=== PATIENT | female | born 1955 | race Caucasian/White ===

== ENCOUNTER 2018-03-31 15:00 | Outpatient (CLI) | payer MEDICARE, MEDICAID | END 2018-03-31 23:59 | disposition home or self-care (01) | LOC: RAD 15:00 | PROVIDERS: ATTEND Family Medicine | DX: R13.12 Dysphagia, oropharyngeal phase (principal); K21.9 Gastro-esophageal reflux disease without esophagitis | CPT/HCPCS: 74230 ==

== ENCOUNTER 2018-04-29 18:37 | Inpatient (IN) | payer MEDICARE, MEDICAID ==
[~2018-04-29] VITALS: Ht 158.8 cm; Wt 70.0 kg
[2018-04-29] MEDS ORDERED: methylPREDNISolone sod succ 125mg/2ml vial IV ONE (18:55)
[2018-04-29] MEDS ORDERED: normal saline 1000ML IV soln IVB ONE (18:55)
[2018-04-29] MEDS ORDERED: ipratropium/albuterol 3ml nebule NEB ONE (18:55)
[2018-04-29] MEDS ORDERED: albuterol 2.5 MG/3 ML nebule NEB ONE (18:55)
--- NOTE | 2018-04-29 19:07 | NUR ---
[employer] ADMINISTRATOR AT BEDSIDE
--- NOTE | 2018-04-29 19:19 | NUR ---
REPORT TO MARGARITA NORMAN
[2018-04-29 19:29] LABS: BASOPHILS # (AUTO) 0.1 X10'3 (0-0.2); BASOPHILS % (AUTO) 0.7 % (0-1); EOSINOPHILS # (AUTO) 0.4 X10'3 (0-0.9); EOSINOPHILS % (AUTO) 5.5 % (0-6); HEMATOCRIT 39.4 % (35.0-45.0); HEMOGLOBIN 12.2 g/dl (12.0-16.0); LYMPHOCYTES # (AUTO) 1.8 X10'3 (1.1-4.8); LYMPHOCYTES % (AUTO) 22.1 % (21-51); MEAN CORPUSCULAR HEMOGLOBIN 23.3 PG (27.0-31.0); MEAN CORPUSCULAR VOLUME 75.2 FL (78-98); MONOCYTES # (AUTO) 0.5 X10'3 (0-0.9); MONOCYTES % (AUTO) 6.7 % (2-12); NEUTROPHILS # (AUTO) 5.3 X10'3 (1.8-7.7); PLATELET COUNT 114 X10'3 (140-440); RED BLOOD COUNT 5.24 X10'6 (4.20-5.60); RED CELL DISTRIBUTION WIDTH 17.3 % (11.5-14.5); WHITE BLOOD COUNT 8.1 X10'3 (4.5-11.0)
[2018-04-29 19:42] LABS: PARTIAL THROMBOPLASTIN TIME 26 SECONDS (22-32); PROTHROMBIN TIME 10.1 SECONDS (9.0-12.0)
--- NOTE | 2018-04-29 19:44 | NUR ---
SPOKE TO MARIANNE FROM [facility]
[2018-04-29 19:48] LABS: ALANINE AMINOTRANSFERASE 18 U/L (12-78); ALBUMIN 3.5 G/DL (3.4-5.0); ALKALINE PHOSPHATASE 114 IU/L (46-116); ANION GAP 6 (8-16); ASPARTATE AMINO TRANSFERASE 25 U/L (10-37); BILIRUBIN,TOTAL 0.2 MG/DL (0.1-1.0); BLOOD UREA NITROGEN 18 MG/DL (7-18); BUN/CREATININE RATIO 18.6 (6.6-38.0); CHLORIDE 107 MMOL/L (99-107); CREATININE 0.97 MG/DL (0.40-0.90); GLUCOSE 119 MG/DL (70-104); POTASSIUM 3.6 MMOL/L (3.5-5.1); SODIUM 143 MMOL/L (135-145); TOTAL CARBON DIOXIDE 29.8 MMOL/L (24-32); TOTAL PROTEIN 7.1 G/DL (6.4-8.2); eGFR 59 ML/MIN
[2018-04-29] MEDS ORDERED: magnesium hydroxide 30ml (MOM) UD suspension PO PRN (21:00)
[2018-04-29] MEDS ORDERED: magnesium 2GM in 50ml NS 50 ML IV PRN (21:00)
[2018-04-29] MEDS ORDERED: acetaminophen 325mg tablet PO PRN ×2 (21:00)
[2018-04-29] MEDS ORDERED: potassium Cl 40MEQ/NS 500ml 500 ML IV PRN ×2 (21:00)
[2018-04-29] MEDS ORDERED: mag hydrox/Alum hydrox/simeth 30ml oral suspension PO PRN (21:00)
[2018-04-29] MEDS ORDERED: magnesium Cl slow-release 64mg tablet PO PRN (21:00)
[2018-04-29] MEDS ORDERED: magnesium 4gm in 100ml NS 100 ML IV PRN (21:00)
[2018-04-29] MEDS ORDERED: ipratropium/albuterol 3ml nebule NEB PRN (21:00)
[2018-04-29] MEDS ORDERED: ondansetron/PF 4mg/2ml inj IV PRN (21:00)
[2018-04-29] MEDS ORDERED: potassium Cl 20 mEq SR tablet PO PRN ×2 (21:00)
[2018-04-29] MEDS ORDERED: azithromycin/NS 500mg/250ml 250 ML IV SCH (22:00)
--- NOTE | 2018-04-29 23:55 | NUR ---
PAGING RTX FOR NEBS
[2018-04-30] MEDS: ipratropium/albuterol 3ml nebule NEB SCH ×3 (00:02→07:15)
--- NOTE | 2018-04-30 04:27 | NUR ---
PT RESTING COMFORTABLY IN BED, APPEARS IN NO ACUTE DISTRESS.
--- NOTE | 2018-04-30 06:37 | NUR ---
PATIENT PLACED ON 2L O2 NC SATING 88 % RA.
[2018-04-30] MEDS: enoxaparin 40mg/0.4ml syringe SQ SCH (07:05)
[2018-04-30] MEDS: methylPREDNISolone sod succ/PF 40mg inj. IV SCH ×2 (07:06→20:52)
[2018-04-30] MEDS: K and/or MAG REPLACEMENT MC SCH (08:02)
--- NOTE | 2018-04-30 08:11 | NUR ---
PATIENT NOTED WITH URINARY INCONTINENCE,BEDDINGS AND GOWN CHANGED,PATIENT REPOSITIONED TOLERATED.CALL LIGHT WITHIN REACH.JAYLEEN NURSE AT BEDSIDE.
[2018-04-30 08:32] LABS: BASOPHILS # (AUTO) 0.1 X10'3 (0-0.2); BASOPHILS % (AUTO) 0.5 % (0-1); EOSINOPHILS % (AUTO) 0.1 % (0-6); HEMATOCRIT 38.4 % (35.0-45.0); LYMPHOCYTES # (AUTO) 1.2 X10'3 (1.1-4.8); LYMPHOCYTES % (AUTO) 12.1 % (21-51); MEAN CORPUSCULAR HEMOGLOBIN 23.4 PG (27.0-31.0); MEAN CORPUSCULAR HGB CONC 31.3 g/dL (33.0-36.5); MEAN CORPUSCULAR VOLUME 74.7 FL (78-98); MEAN PLATELET VOLUME 9.9 FL (7.4-10.4); MONOCYTES # (AUTO) 0.4 X10'3 (0-0.9); MONOCYTES % (AUTO) 3.9 % (2-12); NEUTROPHILS # (AUTO) 8.2 X10'3 (1.8-7.7); NEUTROPHILS % (AUTO) 83.4 % (42-75); PLATELET COUNT 121 X10'3 (140-440); RED BLOOD COUNT 5.14 X10'6 (4.20-5.60); RED CELL DISTRIBUTION WIDTH 17.1 % (11.5-14.5); WHITE BLOOD COUNT 9.9 X10'3 (4.5-11.0)
[2018-04-30] MEDS ORDERED: QUET25TA PO (08:37)
[2018-04-30] MEDS ORDERED: CLON1TAB12 PO (08:37)
[2018-04-30] MEDS ORDERED: OMEP20CA10 PO (08:37)
[2018-04-30] MEDS ORDERED: PYRI50TA10 PO (08:37)
[2018-04-30] MEDS ORDERED: SERT100T10 PO (08:37)
[2018-04-30] MEDS ORDERED: MEMA14CA PO (08:37)
[2018-04-30] MEDS ORDERED: CLON-527 PO (08:37)
[2018-04-30] MEDS ORDERED: ALBU18HF2 INH (08:37)
[2018-04-30] MEDS ORDERED: OXYB5TAB11 PO ×2 (08:37)
[2018-04-30] MEDS ORDERED: LEVO75TA7 PO (08:37)
[2018-04-30] MEDS ORDERED: DONE10TA7 PO (08:37)
[2018-04-30] MEDS ORDERED: ALBU8.5H8 INH (08:37)
[2018-04-30 09:01] LABS: ALBUMIN 3.4 G/DL (3.4-5.0); ANION GAP 10 (8-16); BLOOD UREA NITROGEN 18 MG/DL (7-18); BUN/CREATININE RATIO 18.6 (6.6-38.0); CHLORIDE 106 MMOL/L (99-107); CREATININE 0.97 MG/DL (0.40-0.90); GLUCOSE 114 MG/DL (70-104); POTASSIUM 3.6 MMOL/L (3.5-5.1); SODIUM 144 MMOL/L (135-145); TOTAL CARBON DIOXIDE 27.9 MMOL/L (24-32); eGFR 59 ML/MIN
[2018-04-30] MEDS: DOXYCYCLINE 100MG CAPSULE PO SCH ×2 (09:25→20:52)
--- NOTE | 2018-04-30 11:13 | NUR ---
DR. DE LA ROSA AWARE THAT PATIENT IS TACHY 118.PATIENT DENIES CHEST DISCOMFORT.
--- NOTE | 2018-04-30 11:13 | NUR ---
PAGED HOSPITALIST.BP 183/95 HR 112,DENIES CHEST DISCOMFORT.
[2018-04-30] MEDS ORDERED: LORazepam 2 mg/ml vial IV ONE ×2 (11:35→15:25)
[2018-04-30] MEDS ORDERED: metoprolol tartrate 1mg/ml inj IV ONE (11:35)
[2018-04-30] MEDS: levalbuterol 0.63mg/3ml nebule IH SCH ×3 (12:06→23:29)
[2018-04-30] MEDS: ipratropium 0.5 MG/2.5ML nebule IH SCH ×4 (12:06→23:29)
--- NOTE | 2018-04-30 14:30 | NUR ---
patient assisted to bsc,bm x1.beddings and hospital gown changed.
--- NOTE | 2018-04-30 15:14 | NUR ---
patient pulled piv.
--- NOTE | 2018-04-30 16:04 | NUR ---
patient asleep,call light within reach.
--- NOTE | 2018-04-30 19:45 | NUR ---
Per RT, xopenex tx to be administered when meds obtained.
[2018-04-30] MEDS: lactobacillus rhamnosus 10,000 MMU CELLS/CAPSULE PO SCH (20:52)
--- NOTE | 2018-05-01 02:28 | NUR ---
EVS required as fecal matter noted on floor near pt gurney.
[2018-05-01] MEDS: levalbuterol 0.63mg/3ml nebule IH SCH ×6 (02:58→23:55)
[2018-05-01] MEDS: ipratropium 0.5 MG/2.5ML nebule IH SCH ×6 (02:58→23:54)
[2018-05-01 07:59] LABS: BASOPHILS # (AUTO) 0.1 X10'3 (0-0.2); BASOPHILS % (AUTO) 0.5 % (0-1); EOSINOPHILS % (AUTO) 0 % (0-6); HEMATOCRIT 40.9 % (35.0-45.0); HEMOGLOBIN 12.7 g/dl (12.0-16.0); LYMPHOCYTES # (AUTO) 2.4 X10'3 (1.1-4.8); LYMPHOCYTES % (AUTO) 15.4 % (21-51); MEAN CORPUSCULAR HEMOGLOBIN 23.1 PG (27.0-31.0); MEAN CORPUSCULAR VOLUME 74.5 FL (78-98); MEAN PLATELET VOLUME 10.3 FL (7.4-10.4); MONOCYTES # (AUTO) 0.7 X10'3 (0-0.9); MONOCYTES % (AUTO) 4.3 % (2-12); NEUTROPHILS # (AUTO) 12.5 X10'3 (1.8-7.7); NEUTROPHILS % (AUTO) 79.8 % (42-75); PLATELET COUNT 156 X10'3 (140-440); RED BLOOD COUNT 5.49 X10'6 (4.20-5.60); RED CELL DISTRIBUTION WIDTH 17.2 % (11.5-14.5); WHITE BLOOD COUNT 15.7 X10'3 (4.5-11.0)
[2018-05-01] MEDS: enoxaparin 40mg/0.4ml syringe SQ SCH (08:15)
[2018-05-01] MEDS: methylPREDNISolone sod succ/PF 40mg inj. IV SCH ×2 (08:15→20:59)
[2018-05-01] MEDS: DOXYCYCLINE 100MG CAPSULE PO SCH ×2 (08:15→20:58)
[2018-05-01] MEDS: lactobacillus rhamnosus 10,000 MMU CELLS/CAPSULE PO SCH ×2 (08:15→20:58)
[2018-05-01 08:29] LABS: ANISOCYTOSIS 1+; HYPOCHROMASIA 1+; MICROCYTOSIS 1+; PLATELET ESTIMATE NORMAL; TOTAL CELLS COUNTED 100; TOXIC GRANULATION 1+
[2018-05-01 08:37] LABS: ALBUMIN 3.4 G/DL (3.4-5.0); ANION GAP 10 (8-16); BLOOD UREA NITROGEN 30 MG/DL (7-18); BUN/CREATININE RATIO 30.6 (6.6-38.0); CALCIUM 9.4 MG/DL (8.5-10.1); CHLORIDE 105 MMOL/L (99-107); CREATININE 0.98 MG/DL (0.40-0.90); GLUCOSE 105 MG/DL (70-104); MAGNESIUM 2.1 MG/DL (1.5-2.4); SODIUM 141 MMOL/L (135-145); TOTAL CARBON DIOXIDE 26.4 MMOL/L (24-32); eGFR 58 ML/MIN
[2018-05-01] MEDS: K and/or MAG REPLACEMENT MC SCH (09:16)
--- NOTE | 2018-05-01 14:20 | NUR ---
DR DE LA ROSA CALLED, REQUESTED AN REPEAT MANUAL BP. BP REPEATED ON LT ARM, SITTING, 180/98
[2018-05-01] MEDS ORDERED: hydrALAZINE 20mg/ml inj. IV PRN (14:25)
--- NOTE | 2018-05-01 17:28 | NUR ---
Eric welch in [facility] - 05/01/18 at 1728 by RPRATHER pt was given I
--- NOTE | 2018-05-01 17:29 | NUR ---
pt was given IS and instructed on use, took 10 breaths to 1500 ml
--- NOTE | 2018-05-01 17:37 | NUR ---
given hydralazine dose for bp of 166/90
--- NOTE | 2018-05-01 18:18 | NUR ---
call to surgical unit, no nurse available to take report at this time
[2018-05-01 19:30] VITALS: BP 167/65
[2018-05-01] MEDS: propranolol 10mg tablet PO SCH (20:58)
[2018-05-01] MEDS: oxybutynin 5mg tablet PO SCH (20:58)
[2018-05-01] MEDS ORDERED: donepezil 5mg tablet PO SCH (21:00)
[2018-05-01] MEDS ORDERED: clonazePAM 1mg tablet PO SCH (21:00)
[2018-05-01] MEDS ORDERED: oxybutynin 5mg tablet PO SCH (21:00)
[2018-05-01] MEDS ORDERED: QUEtiapine 25mg tablet PO SCH (21:00)
[2018-05-02 00:25] VITALS: BP 126/58
[2018-05-02] MEDS: levalbuterol 0.63mg/3ml nebule IH SCH ×3 (03:09→12:56)
[2018-05-02] MEDS: ipratropium 0.5 MG/2.5ML nebule IH SCH ×3 (03:09→12:56)
[2018-05-02 06:17] LABS: BASOPHILS % (AUTO) 0.4 % (0-1); EOSINOPHILS % (AUTO) 0.1 % (0-6); HEMATOCRIT 40.9 % (35.0-45.0); HEMOGLOBIN 12.7 g/dl (12.0-16.0); LYMPHOCYTES # (AUTO) 1.9 X10'3 (1.1-4.8); LYMPHOCYTES % (AUTO) 16.8 % (21-51); MEAN CORPUSCULAR HEMOGLOBIN 23.2 PG (27.0-31.0); MEAN CORPUSCULAR HGB CONC 31.1 g/dL (33.0-36.5); MEAN CORPUSCULAR VOLUME 74.5 FL (78-98); MEAN PLATELET VOLUME 10.6 FL (7.4-10.4); MONOCYTES # (AUTO) 0.4 X10'3 (0-0.9); MONOCYTES % (AUTO) 3.6 % (2-12); NEUTROPHILS # (AUTO) 8.9 X10'3 (1.8-7.7); NEUTROPHILS % (AUTO) 79.1 % (42-75); PLATELET COUNT 152 X10'3 (140-440); RED BLOOD COUNT 5.49 X10'6 (4.20-5.60); WHITE BLOOD COUNT 11.3 X10'3 (4.5-11.0)
--- NOTE | 2018-05-02 06:30 | NUR ---
Patient in room [facility]. I have received report from Cielo NORMAN and had the opportunity to ask questions and assume patient care.
--- NOTE | 2018-05-02 06:31 | NUR ---
Gave report to Nichole NORMAN pt is sleeping on RA in no apparent distress, call light and items of freq use within reach.
[2018-05-02 06:44] LABS: ALBUMIN 3.2 G/DL (3.4-5.0); ANION GAP 10 (8-16); BLOOD UREA NITROGEN 33 MG/DL (7-18); BUN/CREATININE RATIO 32.4 (6.6-38.0); CHLORIDE 105 MMOL/L (99-107); CREATININE 1.02 MG/DL (0.40-0.90); GLUCOSE 103 MG/DL (70-104); MAGNESIUM 2.1 MG/DL (1.5-2.4); SODIUM 140 MMOL/L (135-145); TOTAL CARBON DIOXIDE 25.3 MMOL/L (24-32); eGFR 55 ML/MIN
[2018-05-02] MEDS ORDERED: pantoprazole 40mg Tablet.DR PO SCH (07:30)
[2018-05-02 07:45] VITALS: BP 134/62
[2018-05-02] MEDS ORDERED: sertraline 50mg tablet PO SCH (08:00)
[2018-05-02] MEDS ORDERED: clonazePAM 1mg tablet PO SCH (08:00)
[2018-05-02] MEDS ORDERED: memantine hcl 7mg SR capsule (24-hr) PO SCH (08:00)
[2018-05-02] MEDS ORDERED: oxybutynin 5mg tablet PO SCH (08:00)
[2018-05-02] MEDS ORDERED: pyridoxine 50mg tablet PO SCH (08:00)
[2018-05-02] MEDS ORDERED: levoTHYROXINE 75mcg tablet PO SCH (08:00)
[2018-05-02] MEDS: K and/or MAG REPLACEMENT MC SCH (08:00)
[2018-05-02] MEDS: lactobacillus rhamnosus 10,000 MMU CELLS/CAPSULE PO SCH (08:35)
[2018-05-02] MEDS: DOXYCYCLINE 100MG CAPSULE PO SCH (08:35)
[2018-05-02] MEDS: oxybutynin 5mg tablet PO SCH ×2 (08:35→13:16)
[2018-05-02] MEDS: propranolol 10mg tablet PO SCH ×2 (08:35→13:16)
[2018-05-02] MEDS: enoxaparin 40mg/0.4ml syringe SQ SCH (08:36)
[2018-05-02] MEDS: methylPREDNISolone sod succ/PF 40mg inj. IV SCH (08:36)
[2018-05-02 11:52] VITALS: BP 149/77
[2018-05-02] MEDS ORDERED: PRED20TA PO (12:42)
[2018-05-02] MEDS ORDERED: PROP10TA10 PO (12:42)
[2018-05-02] MEDS ORDERED: DOXY-224 PO (12:42)
--- NOTE | 2018-05-02 13:54 | NUR ---
Student documentation: I have reviewed and agree with all interventions, assessments performed and documented by Rochelle Student Nurse. Student Medication Administration: For this medication-pass time frame, all medication were reviewed, dispensed, administered and documented per hospital policy by Rochelle Student Nurse.
== END 2018-05-02 13:55 | disposition home or self-care (01) | DRG 189 ==
LOC: ER 18:38 → ED HOLD 20:58 → OBSVTOIN 20:58 → ED HOLD 04-30 15:32 → SUR 3N 05-01 18:47
PROVIDERS: ADMIT Hospitalist; ATTEND Family Medicine
DX: J96.01 Acute respiratory failure with hypoxia (principal); J45.51 Severe persistent asthma with (acute) exacerbation; J20.9 Acute bronchitis, unspecified; I16.0 Hypertensive urgency; F03.90 Unspecified dementia, unspecified severity, without behavioral disturbance, psychotic disturbance, mood disturbance, and anxiety; E03.9 Hypothyroidism, unspecified; R00.0 Tachycardia, unspecified; R25.2 Cramp and spasm; F32.9 Major depressive disorder, single episode, unspecified; Z79.899 Other long term (current) drug therapy; Z88.5 Allergy status to narcotic agent; Z88.0 Allergy status to penicillin; Z88.8 Allergy status to other drugs, medicaments and biological substances
CPT/HCPCS: 36415; 71045; 73552; 80048; 80053; 83735; 83880; 84484; 85025; 85610; 85730; 87070; 93005; 94640; 94760; 96374; 99285; G0378; J0360; J0456; J1650; J2060; J2920; J2930; J3490; J7614